=== PATIENT | female | born 1965 | race Caucasian/White ===

== ENCOUNTER 2018-09-14 11:49 | Emergency (ER) | payer BC ==
[~2018-09-14] VITALS: Ht 165.1 cm; Wt 70.0 kg
[~2018-09-14 11:49] MED LIST: BACTRIM DS1 TAB PO; BL ADULT ASA81 MG PO; CIPRO500 MG PO; FLEXERIL OR; HYDROCHLOROT12.5 MG PO; LISINOP/HCTZ1 TA1 PO; LISINOPRIL10 MG PO; LORTAB5 PO; NAPROSYN500 MG PO; RAPAFLO4 MG PO; SYNTHROID125 MCG PO; ZOLOFT50 MG PO
[2018-09-14 12:49] LABS: URINE BLOOD DIPSTICK NEGATIVE (NEGATIVE); URINE COLOR YELLOW; URINE GLUCOSE - DIPSTICK NEGATIVE (NEGATIVE); URINE KETONE TRACE mg/dL (NEGATIVE); URINE LEUK ESTERASE TRACE (NEGATIVE); URINE PH 5.5 (4.5-8.0); URINE PROTEIN - DIPSTICK NEGATIVE (NEG-TRACE); URINE SPECIFIC GRAVITY >=1.030; URINE UROBILINOGEN - DIPSTICK 0.2 E.U./dL (0.2)
[2018-09-14 13:22] LABS: URINE BILIRUBIN - DIPSTICK SMALL (NEGATIVE); URINE NITRITE - DIPSTICK POSITIVE (Negative)
[2018-09-14 13:29] LABS: URINE SQUAMOUS EPITHELIAL CELL FEW EPI/hpf (0-FEW)
[2018-09-14 13:30] LABS: URINE BACTERIA MANY hpf
[2018-09-14] MEDS ORDERED: KEFLEX500 M1 PO (13:58)
[2018-09-14 14:08] VITALS: BP 177/89
== END 2018-09-14 14:13 | disposition home or self-care (01) | DRG 690 ==
LOC: ED 11:49
DX: N39.0 Urinary tract infection, site not specified (principal); I10 Essential (primary) hypertension; E03.9 Hypothyroidism, unspecified; F17.200 Nicotine dependence, unspecified, uncomplicated

== ENCOUNTER → 2018-11-25 | Outpatient (REF) | payer BC ==
[~2018-11-25] MED LIST changes: +ATORVASTATIN CA80 MG PO; +CELEXA20 M1 PO; +CETIRIZINE10 MG PO; +COREG25 MG PO; +CRANBERR3 PO; +CRANBERRY125 MG PO; +DIOVAN160 MG PO; +FISH OIL1000 MG PO; +GARLIC10 MG PO; +IRON18 M1 PO; +KEFLEX500 M1 PO; +LEVOTHYROXIN125 MC1 PO; +MULTI VIT PO
[2018-11-25 10:42] VITALS: BP 168/95
== END | disposition home or self-care (01) | DRG 951 ==
LOC: FIORUCCI 09:56
PROVIDERS: ATTEND Surgery
DX: Z12.11 Encounter for screening for malignant neoplasm of colon (principal)

== ENCOUNTER 2018-12-21 09:17 | Emergency (ER) | payer BC ==
[~2018-12-21] VITALS: Ht 160 cm; Wt 70.0 kg
[2018-12-21] MEDS ORDERED: DIOVAN HC1 PO (09:46)
[2018-12-21 10:56] LABS: HEMATOCRIT 40.4 % (37.0-47.0); IMMATURE GRANULOCYTES 0.4 % (0.0-5.0); MEAN CORPUSCULAR HGB 30.3 pG CALC (26.0-32.0); MEAN CORPUSCULAR HGB CONC 34.2 g/L CALC (32.0-36.0); NEUT# 4.46 thou/uL (2.00-7.15); RED BLOOD COUNT 4.55 mill/uL (4.20-5.60); RED CELL DISTRI WIDTH 12.4 % (11.5-15.5)
[2018-12-21] MEDS ORDERED: FISH OIL1000 MG PO (10:58)
[2018-12-21] MEDS ORDERED: CRANBERR3 PO (10:59)
[2018-12-21] MEDS ORDERED: GARLIC10 MG PO (10:59)
[2018-12-21 11:00] LABS: HEMOGLOBIN 13.8 g/dl (12.0-16.0)
[2018-12-21 11:01] LABS: MEAN CELL VOLUME 88.8 fL CALC (80.0-100.0); URINE BILIRUBIN - DIPSTICK NEGATIVE (NEGATIVE); URINE BLOOD DIPSTICK NEGATIVE (NEGATIVE); URINE COLOR YELLOW; URINE GLUCOSE - DIPSTICK NEGATIVE (NEGATIVE); URINE KETONE NEGATIVE (NEGATIVE); URINE LEUK ESTERASE NEGATIVE (NEGATIVE); URINE PROTEIN - DIPSTICK NEGATIVE (NEG-TRACE); URINE SPECIFIC GRAVITY 1.015; URINE UROBILINOGEN - DIPSTICK 0.2 E.U./dL (0.2)
[2018-12-21 11:12] LABS: URINE NITRITE - DIPSTICK POSITIVE (Negative)
[2018-12-21 11:13] LABS: ALBUMIN 4.4 g/dL (3.2-5.0); ALKALINE PHOSPHATASE 96 u/l (38-126); ANION GAP 15 (6-22 (CALC)); BILIRUBIN, TOTAL 0.4 mg/dL (0.0-1.4); BUN 10 mg/dL (7-17); BUN/CREATININE RATIO 27 (12-20 (CALC)); CARBON DIOXIDE 23 mmol/l (22-30); CHLORIDE 99 mmol/l (95-108); CREATININE 0.4 mg/dL (0.5-1.0); GFR > 60 ML/MIN (>=60 (CALC)); GFR FOR AFR.AMER. > 60 ML/MIN (>=60 (CALC)); POTASSIUM 4.3 mmol/l (3.5-5.1); SGOT/AST 27 u/l (14-36); SODIUM 133 mmol/l (137-146); TOTAL PROTEIN 6.8 g/dL (6.3-8.2)
[2018-12-21 11:15] LABS: URINE BACTERIA MODERATE hpf; URINE RBC 0-2 RBC/hpf (0-5); URINE WBC 0-2 WBC/hpf (0-5)
[2018-12-21] MEDS ORDERED: CATAPRES0.1 MG PO (11:36)
[2018-12-21 13:15] VITALS: BP 142/85
== END 2018-12-21 13:15 | disposition home or self-care (01) | DRG 305 ==
LOC: ED 09:17
PROVIDERS: Emergency Medicine
DX: I10 Essential (primary) hypertension (principal); N39.0 Urinary tract infection, site not specified; B96.20 Unspecified Escherichia coli [E. coli] as the cause of diseases classified elsewhere

== ENCOUNTER 2019-12-18 | Emergency (ER) | payer BC ==
[~2019-12-18] MED LIST changes: +AMLODIPINE BESYL5 MG PO; +CATAPRES0.1 MG PO; +DIOVAN HC1 PO; +FERRAPLUS 90 PO; +TRAMADOL HCL50 MG PO; +VITAMIN D32000 UNIT PO
--- NOTE | 2019-12-21 16:25 | NUR ---
Notified patient of Covid results (Negative). Advised patient to follow up with PCP or retuen to ED for urgent needs. Advised patient to continue practicing Covid prevention measures including avoid contact with others and hand washing. Patient verbalized understanding.
[2020-05-23] MEDS ORDERED: TURMERIC500 MG PO (12:08)
[2020-05-23] MEDS ORDERED: FISH OIL1 CAP PO (12:09)
[2020-05-23] MEDS ORDERED: TRAMADOL HCL50 MG PO ×2 (12:53→13:04)
== END 2019-12-18 18:57 | disposition home or self-care (01) | DRG 866 ==
DX: B34.9 Viral infection, unspecified (principal); F17.210 Nicotine dependence, cigarettes, uncomplicated; Z20.828 Contact with and (suspected) exposure to other viral communicable diseases

== ENCOUNTER 2022-03-07 08:52 | Day surgery (SDC) | payer BC ==
[~2022-03-07] VITALS: Ht 160 cm; Wt 70.3 kg
[~2022-03-07 08:52] MED LIST changes: +ALPRAZOLAM ER0.5 MG PO; +B COMPLE2 PO; +ESTER C PO; +FISH OIL1 CAP PO; +MEDDOSEPAK PO; +SEPTRA4001 PO; +TRAMADOL HYDROC50 M1; +TURMERIC500 MG PO; +[UNRECOGNIZED DRUG - CODE]
[2022-03-07 11:33] VITALS: BP 143/83
== END 2022-03-07 11:50 | disposition home or self-care (01) | DRG 951 ==
LOC: ENDO 08:52
PROVIDERS: ATTEND Surgery
PROC: 0DJD8ZZ Inspection of Lower Intestinal Tract, Via Natural or Artificial Opening Endoscopic (ICD-10-PCS; principal; 2022-03-07)
DX: Z12.11 Encounter for screening for malignant neoplasm of colon (principal); K57.30 Diverticulosis of large intestine without perforation or abscess without bleeding; I10 Essential (primary) hypertension; I25.10 Atherosclerotic heart disease of native coronary artery without angina pectoris; Z87.891 Personal history of nicotine dependence